=== PATIENT | male | born 1995 | race Caucasian/White ===

== ENCOUNTER 2020-09-22 09:31 | Outpatient (NON) | payer BC, SELFPAY ==
[2020-09-22 17:18] LABS: SARS-CoV-2 RNA PCR Negative
== END 2020-09-22 09:32 ==
PROVIDERS: Visit Provider Family Medicine
DX: Z20.828 Contact with and (suspected) exposure to other viral communicable diseases (principal)
CPT/HCPCS: 87635; C9803; U0003

== ENCOUNTER 2020-10-26 18:46 | Emergency (ER) | payer BC, SELFPAY ==
--- NOTE | ~2020-10-26 | XR_ITS ---
EXAMINATION: XR elbow RT min 3V INDICATION: Right elbow pain TECHNIQUE: Four views of the right elbow are obtained. COMPARISON: None available FINDINGS: There is no fracture, dislocation, or subluxation. The bones, soft tissues, and joint space s are normal. IMPRESSION: 1. No acute osseous abnormality. Reviewed, dictated and finalized at location A. [facility]
[2020-10-26 18:59] VITALS: BP 126/64; PULSE 86; RESP 20; TEMP 37; O2SAT 100
--- NOTE | 2020-10-26 19:07 | ED.EXTPRO ---
HPI - Extremity Problem General Chief complaint: Extremity Problem,Nontraumatic Stated complaint: r/arm numb Time Seen by Provider: 10/26/20 18:49 Source: patient Mode of arrival: ambulatory Limitations: no limitations History of Present Illness HPI Narrative: 25-year-old male presents to [facility] with complaints of shooting pains from his right elbow down to his right fingers and numbness and tingling to his right fingers for the past 2 weeks. Patient reports he was evaluated by his primary care provider 4 days ago and was prescribed 1 week of naproxen. Patient reports that his symptoms became worse yesterday. Patient reports that he is to follow-up with his primary care provider next week. Patient reports he attempted to call his primary care provider today with no return call. Patient reports that he does have increased pain with range of motion to his right elbow. Patient has been wearing a tennis elbow strap to his right arm with little relief. Patient denies injury. Patient denies chest pain, shortness of breath, headache, dizziness, blurred vision, fever, bodies, chills, nausea, vomiting or diarrhea. MD Complaint: other (shooting pains from right elbow down to fingers, numbness/tingling to right fingers ) Onset (ago): week(s) (2) Location: right Associated symptoms: denies other symptoms Related Data Home Medications Medication Instructions Recorded Confirmed naproxen 500 mg BID 10/26/20 10/26/20 Allergies Allergy/AdvReac Type Severity Reaction Status Date / Time Penicillins Allergy Anaphylactic Verified 10/26/20 19:02 Shock Review of Systems Constitutional: Constitutional: Denies chills, Denies fever(s) and Denies weakness ENT: Denies dysphagia, Denies dizziness, Denies epistaxis and Denies sore throat Cardiovascular: Cardiovascular: Denies chest pain, Denies rapid heart rate, Denies radiating jaw, neck or arm pain and Denies slow heart rate Respiratory: Respiratory: Denies chest congestion, Denies cough, Denies dyspnea and Denies wheezing Gastrointestinal: Gastrointestinal: Denies abdominal pain, Denies bloating, Denies constipation, Denies diarrhea, Denies nausea and Denies vomiting Musculoskeletal: Comments: Right elbow pain, numbness/tingling right fingers Integumentary/Breasts: Skin/Breast: Denies pruritus, Denies erythema, Denies rash and Denies skin ulcer Neurologic: Denies vertigo, Denies dizziness, Denies syncope, Denies headache(s) and Denies weakness [facility] Social History Social History (Updated 10/26/20 @ 19:11 by Jen Emerson APRN) Smoking status: Current every day smoker Gender identity (if verbalized by the patient): Male Comments At time of signature, I agree with nursing past medical, surgical, social and family history. There is no relevant family history pertinent to the presenting complaint. Exam Const: General: healthy appearing, no acute distress and alert Orientation/consciousness: patient oriented x3 Neck: Neck: normal visual inspection Resp: Effort & Inspection: normal respiratory effort and no use of accessory muscles Auscultation: clear to auscultation bilaterally, no rales, no rhonchi and no wheezes Cardio: Rate: regular rate, not bradycardic and not tachycardic Rhythm: regular rhythm Skin: General skin exam: normal color, no jaundice and no pallor Rashes: no rashes Wounds: no wounds Neuro: General: patient oriented x3, moves all extremities, no meningeal signs, no focal motor deficits and CN's II-XI intact bilaterally Extrem: General: normal to inspection, no clubbing, cyanosis or edema, no pedal edema and no edema Other: Full range of motion noted to upper extremities. Pulses are within normal limits. Hand grasp are equal and strong. Capillary refill within normal limits. There is no erythema, swelling, ecchymosis or signs of infection noted Course Vital Signs Vital signs: Vital Signs Temperature 37.0 C 10/26/20 18:59 Pulse Rate 86
== END 2020-10-26 19:30 | disposition home or self-care (01) ==
PROVIDERS: Emergency Provider Nurse Practitioner Family; PCP Family Medicine
DX: M25.521 Pain in right elbow (principal)
CPT/HCPCS: 73080; 99213; G0463

== ENCOUNTER 2020-11-03 12:45 | Emergency (ER) | payer BC, SELFPAY ==
--- NOTE | ~2020-11-03 | XR_ITS ---
EXAMINATION: XR chest 2V DATE: 11/03/2020 13:54 INDICATION: Wheezing and cough. TECHNIQUE: Frontal and lateral views of the chest were obtained. COMPARISON: None. FINDINGS: The chest demonstrates clear lungs without pneumonia, pleural effusion, or pneumothorax. Th e heart size is normal. IMPRESSION: 1. No acute cardiopulmonary disease. Reviewed, dictated and finalized at location A. [facility]
--- NOTE | 2020-11-03 13:23 | ED.URI ---
HPI - URI/Sore Throat General Chief Complaint: Upper Respiratory Infection Stated Complaint: upper respiratory Time Seen by Provider: 11/03/20 13:24 Source: patient Mode of arrival: ambulatory Limitations: no limitations History of Present Illness HPI Narrative: Otis Barry is a 25 yo male with no PMH who comes here with complaints of viral symptoms they think might be Covid. He has a sore throat sinus drainage cough states he feels fatigued started yesterday States has been wearing a mask, not able to smoke cigarette today, states does not know anyone right now that has covid Related Data Allergies Allergy/AdvReac Type Severity Reaction Status Date / Time Penicillins Allergy Anaphylactic Verified 10/26/20 19:02 Shock Review of Systems Review of Systems: Narrative: CONSTITUTIONAL: Denies fever, chills, sweats. EYES: Denies visual changes, redness, discharge. ENT: Has rhinorrhea, has congestion, has sore throat, no otalgia. CARDIOVASCULAR: Denies chest pain, palpitations, edema. RESPIRATORY: Denies dyspnea, complaining of wheezing, has cough GASTROINTESTINAL: Denies abdominal pain, nausea, vomiting, diarrhea. GENITOURINARY: Denies dysuria, hematuria, abnormal discharge SKIN: Denies rash or itching. NEUROLOGIC: Denies numbness, or focal weakness. PSYCHIATRIC: Denies anxiety or depression. PMFSH Past Medical History Medical History No acute medical problems Family History Family History Other No acute medical problems Social History Social History Smoking status: Current every day smoker Gender identity (if verbalized by the patient): Male Comments My nurse Exam Narrative: Exam Narrative: GENERAL: This is a well-nourished, well-developed patient, in mild distress. HEAD: normocephalic, atraumatic. EYES Sclera clear/white. Vision is grossly intact. EARS: External ears normal, auditory canals clear and without drainage, TMs normal without perforation. Hearing grossly intact. NOSE: External nose normal without nasal discharge, nares without redness, no rhinorrhea. THROAT: Mucous membranes moist, posterior pharynx erythema NECK: Neck supple, non-tender CARDIOVASCULAR: Regular rate and rhythm without murmurs, gallops, or rubs. RESPIRATORY: Diminished to auscultation. Breath sounds equal bilaterally. Has wheezes, diffuse bilateral i. GASTROINTESTINAL: Abdomen soft, non-tender, SKIN: warm, intact with no suspicious lesions or rash, good texture and turgor. NEURO: awake, alert, and oriented to person, place and time. There were no obvious focal neurologic abnormalities. Steady gait EXTREMITIES: Normal range of motion. BACK: Nontender without deformity Course Course Emergency Course: Patient came here complaining of Covid symptoms including congestion and mild shortness of breath since yesterday COVID test negative as well as strep test negative sent Covid PCR Chest x-ray negative for any acute cardiopulmonary disease Started on dexamethasone and albuterol Zyrte Stephanie Felipe Patient understands about the PCR Covid test in the next few days Patient is to quarantine for 14 days Vital Signs Vital signs: Vital Signs Temperature 97.9 F 11/03/20 13:25 Pulse Rate 79 11/03/20 13:25 Respiratory Rate 20 11/03/20 13:25 Blood Pressure 118/58 L 11/03/20 13:25 Pulse Oximetry 97 11/03/20 13:25 Temperature 97.9 F 11/03/20 13:25 Pulse Rate 79 11/03/20 13:25 Respiratory Rate 20 11/03/20 13:25 Blood Pressure 118/58 L 11/03/20 13:25 Pulse Oximetry 97 11/03/20 13:25 MDM - URI/Sore Throat Differential Diagnosis Differential diagnosis: Likely upper respiratory infection, sinusitis, viral infection and other Lab Data Labs: Lab Results 11/03/20 11/03/20 Range/Units 13:33 13:55 SARS-CoV-2 IgG Ab Pending
[2020-11-03 13:25] VITALS: BP 118/58; PULSE 79; RESP 20; TEMP 36.6; O2SAT 97
--- NOTE | 2020-11-04 10:17 | PC.NURSE ---
Lab called to verify SARS order, cancelled igb order (blood work)v and changed to PCR.
[2020-11-05 16:37] LABS: SARS-CoV-2 RNA PCR Negative
== END 2020-11-03 14:31 | disposition home or self-care (01) ==
PROVIDERS: Emergency Provider Nurse Practitioner; PCP Family Medicine
DX: J06.9 Acute upper respiratory infection, unspecified (principal); Z20.822 Contact with and (suspected) exposure to COVID-19; F17.200 Nicotine dependence, unspecified, uncomplicated
CPT/HCPCS: 36415; 71046; 86769; 87081; 87426; 87880; 99213; C9803; G0463; U0003; U0005

== ENCOUNTER → 2021-06-06 02:26 | Outpatient (CLI) | payer BC, SELFPAY ==
[2021-06-06 19:54] LABS: SARS-CoV-2 RNA PCR Positive
== END ==
PROVIDERS: PCP Family Medicine; Visit Provider Family Medicine
DX: U07.1 COVID-19 (principal)
CPT/HCPCS: C9803; U0003; U0005

== ENCOUNTER 2023-03-10 18:26 | Emergency (ER) | payer SELFPAY ==
--- NOTE | ~2023-03-10 | XR_ITS ---
Clinical Indication: Cough PA and lateral views of the chest: Comparison: 11/03/2020 Findings: The lungs are clear, without evidence of focal consolidation or pleural effusion. Cardiome diastinal silhouette is within normal limits. Bones and soft tissues are unremarkable. Impression: Normal chest. Reviewed, dictated and finalized at location . Impression: Normal chest.
--- NOTE | 2023-03-10 18:30 | ED.GENADULT ---
HPI - General Adult General Chief complaint: Upper Respiratory Infection Stated complaint: Sore Throat,Congestion,Rt Ear Irritation Time Seen by Provider: 03/10/23 18:30 Source: patient Mode of arrival: ambulatory Limitations: no limitations History of Present Illness HPI narrative: 27-year-old male patient presents to the [facility] with complaints of upper respiratory symptoms x1 week. Patient states he has had a cough, shortness breath, congestion, runny nose, sore throat, bilateral ear pain. Patient has had a fever of about 99. Patient states he has been taking [id number] ibuprofen, Tylenol cold and flu and NyQuil. Patient states he recently started at and is on day 2 of a [employer] from [place]. Patient is a smoker and does smoke cigarettes and vapes. Related Data Allergies Allergy/AdvReac Type Severity Reaction Status Date / Time Penicillins AdvReac Mild Hives Verified 03/10/23 18:40 Review of Systems Review of Systems: CONSTITUTIONAL: Positive low-grade fever, denies chills, or sweats. EYES: Denies visual changes, redness, or discharge. ENT: positive rhinorrhea, congestion, sore throat, positive left otalgia. CARDIOVASCULAR: Denies chest pain, palpitations, or edema. RESPIRATORY: positive cough with dyspnea. GASTROINTESTINAL: Denies abdominal pain, nausea, vomiting, or diarrhea. GENITOURINARY: Denies dysuria or hematuria. SKIN: Denies rash or itching. MUSCULOSKELETAL: Denies back pain, joint pain, or myalgia. NEUROLOGIC: Denies headache, numbness, or weakness. PSYCHIATRIC: Denies anxiety or depression. PMFSH Past Medical History Medical History No acute medical problems Family History Family History Other No acute medical problems Social History Social History Smoking status: Current every day smoker Gender identity (if verbalized by the patient): Male Comments At the time of my signature I agree with nursing past medical history, surgical, social, and family history. There is no relevant family history pertinent to the presenting complaint. Exam Narrative: GENERAL: Well-appearing, well-nourished, and in no acute distress. HEAD: Normocephalic, atraumatic. EYES: PERRLA and EOMI. ENT: Nares with erythema and edema noted bilaterally, no rhinorrhea or epistaxis. Mucous membranes moist. posterior pharynx with erythema noted. No tonsillar enlargement, no exudates or lesions present. Bilateral TMs are clear no erythema or foreign bodies canal. NECK: Supple. No lymphadenopathy CHEST: Patient has inspiratory wheezing noted to bilateral lower lobes on auscultation. No respiratory distress. cough noted during exam. HEART: Regular rate and rhythm. No murmur heard. Normal peripheral pulses. ABDOMEN: Soft, nontender, nondistended, normal active bowel sounds. EXTREMITIES: Normal range of motion. No edema. SKIN: Warm, dry, no rash. NEURO: No focal deficits. Alert and oriented x3. Course Course Level of Care: Express Care Visit Reevaluation(s) Reevaluation #1: Re-evaluated patient notified him that the x-ray is negative for any pneumonia and COVID swabs were negative today. Discussed with him I think that he most likely has viral bronchitis. Will discharge him home with oral steroids, albuterol inhaler and Tessalon Perles and encouraged him to take [id number] 24 hour antihistamine to help with the symptoms. Patient verbalized understanding denies any other questions or concerns at this time Date: 03/10/23 Time: 19:18 Vital Signs Vital signs: Vital Signs Temperature 36.4 C 03/10/23 18:35 Pulse Rate 57 L 03/10/23 18:35 Respiratory Rate 16 03/10/23 18:35 Blood Pressure 137/67 03/10/23 18:35 Pulse Oximetry 98 03/10/23 18:35 Oxygen Delivery Room Air 03/10/23 18:35 Temperature 36.4 C 03/10/23 1
[2023-03-10 18:35] VITALS: BP 137/67; PULSE 57; RESP 16; TEMP 36.4; O2SAT 98
[2023-03-10] MEDS: ALBUTEROL SULFATE NEB 2.5 MG/3 ML INH INHALATION (18:54)
[2023-03-10] MEDS: IPRATROPIUM BR 0.02% INH SOLN 0.5 MG/2.5 ML VIAL INHALATION (18:55)
[2023-03-10 18:58] VITALS: PULSE 57; RESP 18; O2SAT 98
[2023-03-10 19:13] VITALS: PULSE 78; RESP 20; O2SAT 98
== END 2023-03-10 19:19 | disposition home or self-care (01) ==
PROVIDERS: Emergency Provider Nurse Practitioner Family; PCP Family Medicine
DX: J40 Bronchitis, not specified as acute or chronic (principal); F17.200 Nicotine dependence, unspecified, uncomplicated; Z20.822 Contact with and (suspected) exposure to COVID-19
CPT/HCPCS: 71046; 87081; 87426; 87880; 94640; 99213; C9803; G0463